=== PATIENT | male | born 2000 | race Caucasian/White ===

== ENCOUNTER 2022-06-13 20:26 | Emergency (ER) | payer SELFPAY ==
[~2022-06-13] VITALS: Ht 185.4 cm; Wt 91.0 kg
[2022-06-13 21:42] VITALS: BP 136/82
[2022-06-14] MEDS ORDERED: BACITRACIN ZINC OINT UDPKT TOP ONE (00:45)
[2022-06-14] MEDS ORDERED: IBUPROFEN 600MG TABLET PO ONE (00:45)
[2022-06-14] MEDS ORDERED: LIDOCAINE HCL/PF 1% 10 MG/ML 5ML VIAL INFIL ONE (00:45)
[2022-06-14] MEDS ORDERED: IBUP-2029 MT (01:46)
[2022-06-14] MEDS ORDERED: BO1 TP (01:46)
== END 2022-06-14 02:36 | disposition home or self-care (01) ==
LOC: ER 20:26
DX: S61.112A Laceration without foreign body of left thumb with damage to nail, initial encounter (principal); W26.0XXA Contact with knife, initial encounter; Y93.89 Activity, other specified; Y92.89 Other specified places as the place of occurrence of the external cause; Y99.0 Civilian activity done for income or pay
CPT/HCPCS: 12002; 99283; J3490; Z7610

== ENCOUNTER 2022-06-24 10:22 | Emergency (ER) | payer OTHER ==
[~2022-06-24] VITALS: Ht 185.4 cm; Wt 91.0 kg
[~2022-06-24 10:22] MED LIST: BO1 TP; IBUP-2029 MT
[2022-06-24 10:30] VITALS: BP 127/80
== END 2022-06-24 12:10 | disposition home or self-care (01) ==
LOC: ER 10:53
DX: Z48.02 Encounter for removal of sutures (principal)
CPT/HCPCS: 99281